=== PATIENT | male | born 1985 | race African-American/Black ===

== ENCOUNTER 2025-08-12 10:41 | Emergency (ER) | payer SELFPAY ==
[~2025-08-12] VITALS: Ht 167.6 cm; Wt 146.0 kg
[2025-08-12 10:49] VITALS: O2SAT 99
[2025-08-12] MEDS: KETOROLAC 30MG/ML VIAL IM ONE (12:47)
[2025-08-12] MEDS ORDERED: ACET-2708 MT (12:48)
[2025-08-12 13:27] VITALS: BP 166/91; PULSE 89; RESP 18; TEMP 36.9; O2SAT 99
== END 2025-08-12 13:29 | disposition home or self-care (01) ==
LOC: ER 10:41
DX: M79.644 Pain in right finger(s) (principal)
CPT/HCPCS: 73140; 29130; 96372; 99283; J1885; Z7610; A6449